=== PATIENT | female | born 1960 | race Asian ===

== ENCOUNTER 2023-01-05 11:15 | Inpatient (IN) | payer OTHER ==
[~2023-01-05] VITALS: Ht 165.1 cm; Wt 78.8 kg
[2023-01-05 11:40] VITALS: PULSE 85; RESP 13; O2SAT 99
[2023-01-05 12:10] LABS: Basophils # (auto) 0.1 10 ^3/uL (0-0.2); Basophils % (auto) 1.1 % (0.0-2.0); Eosinophils # (auto) 0.1 10 ^3/uL (0-0.8); Eosinophils % (auto) 0.7 % (0.0-7.0); Hemoglobin 13.9 g/dL (12.2-16.2); Lymphocytes # (auto) 2.9 10 ^3/uL (0.4-5.4); Lymphocytes % (auto) 38.1 % (10.0-50.0); Mean Corpuscular Hgb Conc. 34.7 g/dL (32.0-36.0); Mean Corpuscular Volume 92.2 fL (80.0-100.0); Monocytes # (auto) 0.5 10 ^3/uL (0-1.3); Monocytes % (auto) 6.5 % (0.0-12.0); Neutrophils # (auto) 4.1 10 ^3/uL (1.6-8.6); Neutrophils % (auto) 53.6 % (37.0-80.0); Red Blood Cells 4.34 10^6/uL (4.0-5.20); Red Cell Distribution Width 12.8 % (11.8-14.3); White Blood Cell 7.7 10^3/uL (4.4-10.8)
[2023-01-05 12:26] LABS: Alanine Aminotransferase 20 U/L (7-40); Albumin 4.7 g/dL (3.2-4.8); Alkaline Phosphatase 74 U/L (46-116); Anion Gap 7 (5-15); Aspartate Aminotransferase 18 U/L (13-40); BUN/Creatinine Ratio 8.8 (10.0-20.0); Bilirubin, Total 0.8 mg/dL (0.2-1.0); Blood Urea Nitrogen 7 mg/dL (9-23); Calcium 9.7 mg/dL (8.7-10.4); Carbon Dioxide 25 mmol/L (20-30); Chloride 109 mmol/L (98-107); Glucose 91 mg/dL (74-106); Magnesium 2.1 mg/dL (1.6-2.6); Potassium 4.1 mmol/L (3.5-5.1); Sodium 141 mmol/L (136-145); Total Protein 7.3 g/dL (5.7-8.2)
[2023-01-05 12:49] LABS: Amphetamine Screen, Urine Neg (NEGATIVE); Barbiturate Scree,Urine Neg (NEGATIVE); Benzodiazephine Screen, Urine Neg (NEGATIVE); Cocaine Screen, Urine Neg (NEGATIVE); Opiate Scree,Urine Neg (NEGATIVE)
[2023-01-05 12:50] LABS: Cannabinoid Screen, Urine Neg (NEGATIVE); Phencyclidine Screen, Urine Neg (NEGATIVE)
[2023-01-05 12:54] LABS: Urine Bacteria NONE SEEN /hpf (None Seen); Urine Blood Negative /uL (Negative); Urine Clarity Clear (Clear); Urine Color Colorless (Yellow); Urine Protein, UAD Negative (Negative); Urine Specific Gravity 1.005 (1.001-1.035); Urine Urobilinogen Normal (Negative); Urine WBC <1 /hpf (0 - 5); Urine pH 6.5 (5.0-8.0)
[2023-01-05] MEDS ORDERED: ASPirin 325 MG TAB PO ONE (14:15)
[2023-01-05] MEDS ORDERED: HYDROcodone-ACET 5/325MG TAB PO PRN (14:45)
[2023-01-05] MEDS ORDERED: NITROGLYCERIN 0.4 MG SL TAB SL PRN (14:45)
[2023-01-05] MEDS: LOSARTAN POTASSIUM 25 MG TAB PO SCH ×2 (14:45→15:00)
[2023-01-05] MEDS ORDERED: MORPHINE SULFATE INJ 2 MG/ml SYRG IV PRN ×2 (14:45)
[2023-01-05 15:17] LABS: Triglycerides 146 mg/dL (< 150)
[2023-01-05 15:18] LABS: LDL Cholesterol 159 mg/dL (< 100)
[2023-01-05 15:19] LABS: Cholesterol 227 mg/dL (< 200); HDL Cholesterol 60 mg/dL (40-59)
[2023-01-05 19:30] VITALS: PULSE 64; RESP 12; O2SAT 98
[2023-01-05] MEDS: ATORVASTATIN 20 MG TAB PO SCH (22:11)
[2023-01-05] MEDS: METOPROLOL TARTRATE 25 MG TAB PO SCH (22:12)
[2023-01-06] VITALS (7 sets, daily range): BP systolic 110–136; BP diastolic 42–64; PULSE 47–91; RESP 17–20; TEMP 98–98.3; O2SAT 96–99
[2023-01-06] MEDS ORDERED: PNEUMOCOCCAL VACC POLYS 25 MCG/0.5 ML VIAL IM ONE (01:45)
[2023-01-06 05:17] LABS: Basophils # (auto) 0.1 10 ^3/uL (0-0.2); Basophils % (auto) 1.2 % (0.0-2.0); Eosinophils # (auto) 0.1 10 ^3/uL (0-0.8); Eosinophils % (auto) 1.2 % (0.0-7.0); Hematocrit 38.9 % (36.0-46.0); Lymphocytes # (auto) 2.7 10 ^3/uL (0.4-5.4); Lymphocytes % (auto) 40.6 % (10.0-50.0); Mean Corpuscular Hemoglobin 31.4 pg (28.0-32.0); Mean Corpuscular Hgb Conc. 33.3 g/dL (32.0-36.0); Mean Corpuscular Volume 94.4 fL (80.0-100.0); Monocytes # (auto) 0.5 10 ^3/uL (0-1.3); Neutrophils # (auto) 3.4 10 ^3/uL (1.6-8.6); Red Blood Cells 4.12 10^6/uL (4.0-5.20); Red Cell Distribution Width 12.8 % (11.8-14.3); White Blood Cell 6.7 10^3/uL (4.4-10.8)
[2023-01-06 05:32] LABS: Chloride 111 mmol/L (98-107); Sodium 141 mmol/L (136-145)
[2023-01-06 05:33] LABS: Anion Gap 8 (5-15); Calcium 8.6 mg/dL (8.7-10.4); Carbon Dioxide 22 mmol/L (20-30)
[2023-01-06 05:38] LABS: BUN/Creatinine Ratio 9.8 (10.0-20.0); Blood Urea Nitrogen 8 mg/dL (9-23); Glucose 90 mg/dL (74-106)
[2023-01-06] MEDS ORDERED: ADENOSINE 63 MG in GIVE UN-DILUTED 0 ML IV ONE (07:45)
[2023-01-06] MEDS ORDERED: LORazepam 2MG/ML-1ML VIAL IV PRN (09:45)
[2023-01-06] MEDS: LOSARTAN POTASSIUM 25 MG TAB PO SCH (10:00)
[2023-01-06] MEDS ORDERED: ASPirin 81 mg TAB PO SCH (10:00)
[2023-01-06] MEDS: CLOPIDOGREL BISULFATE 75 MG TAB PO SCH (10:00)
[2023-01-06] MEDS: METOPROLOL TARTRATE 25 MG TAB PO SCH ×2 (10:00→21:40)
[2023-01-06] MEDS: ACETAMINOPHEN 325 MG TAB PO PRN ×2 (10:02→18:51)
[2023-01-06] MEDS: ENOXAPARIN SOD 40 MG/0.4 ML SYRINGE SC SCH (12:36)
[2023-01-06] MEDS: ATORVASTATIN 20 MG TAB PO SCH (21:23)
[2023-01-07] VITALS (9 sets, daily range): BP systolic 108–130; BP diastolic 42–75; PULSE 47–61; RESP 16–19; TEMP 36.6; O2SAT 96–99
[2023-01-07 07:30] LABS: Anion Gap 7 (5-15); Carbon Dioxide 23 mmol/L (20-30); Chloride 109 mmol/L (98-107); Potassium 4.2 mmol/L (3.5-5.1); Sodium 139 mmol/L (136-145)
[2023-01-07 07:31] LABS: Calcium 9.1 mg/dL (8.5-10.1)
[2023-01-07 07:33] LABS: INR 0.99 (0.9-1.15); Partial Thromboplastin Time 26.9 SEC (24.5-34.5); Prothrombin Time 10.4 sec (9.3-11.8)
[2023-01-07 07:35] LABS: Basophils # (auto) 0.1 10 ^3/uL (0-0.2); Eosinophils # (auto) 0.1 10 ^3/uL (0-0.8); Eosinophils % (auto) 1.4 % (0.0-7.0); Hematocrit 41.6 % (36.0-46.0); Hemoglobin 14.1 g/dL (12.2-16.2); Lymphocytes # (auto) 2.6 10 ^3/uL (0.4-5.4); Lymphocytes % (auto) 38.8 % (10.0-50.0); Mean Corpuscular Volume 94.1 fL (80.0-100.0); Monocytes # (auto) 0.5 10 ^3/uL (0-1.3); Monocytes % (auto) 7.3 % (0.0-12.0); Neutrophils # (auto) 3.5 10 ^3/uL (1.6-8.6); Neutrophils % (auto) 51.5 % (37.0-80.0); Nucleated Red Blood Cells % 0.1 %; Red Blood Cells 4.42 10^6/uL (4.0-5.20); Red Cell Distribution Width 12.9 % (11.8-14.3); White Blood Cell 6.8 10^3/uL (4.4-10.8)
[2023-01-07 07:36] LABS: BUN/Creatinine Ratio 12.7 (10.0-20.0); Blood Urea Nitrogen 9 mg/dL (9-23); Glucose 101 mg/dL (74-106)
[2023-01-07] MEDS: METOPROLOL TARTRATE 25 MG TAB PO SCH (09:38)
[2023-01-07] MEDS: ENOXAPARIN SOD 40 MG/0.4 ML SYRINGE SC SCH (09:38)
[2023-01-07] MEDS: CLOPIDOGREL BISULFATE 75 MG TAB PO SCH (09:38)
[2023-01-07] MEDS: LOSARTAN POTASSIUM 25 MG TAB PO SCH (09:38)
[2023-01-07] MEDS ORDERED: ASPirin 81 mg TAB PO SCH (10:00)
[2023-01-07] MEDS ORDERED: LIDOCAINE 2%HCL (LOCAL ANESTH.) INJ 20ML MDV ONE (10:06)
[2023-01-07] MEDS ORDERED: IODIXANOL 320MG/ML 100ML BTL IV ONE ×2 (10:06→10:36)
[2023-01-07] MEDS ORDERED: ANGIOMAX 250 MG VIAL IV ONE (10:12)
[2023-01-07] MEDS ORDERED: HEPARIN SODIUM (PORCINE) 5000 UNITS/ML 1ML VIAL ONE (10:12)
[2023-01-07] MEDS ORDERED: fentaNYL CITRATE 100 MCG/2 ML VL ONE (10:12)
[2023-01-07] MEDS ORDERED: VERAPAMIL 2.5MG/ML INJ 2ML VIAL IV ONE (10:12)
[2023-01-07] MEDS ORDERED: SODIUM CHL 0.9% 0 ML ONE (10:13)
[2023-01-07] MEDS ORDERED: MIDAZOLAM HCL 2MG/2ML 2ml VIAL (1mg/ml) ONE (10:13)
== END 2023-01-07 16:00 | disposition home or self-care (01) | DRG 47 ==
LOC: ER 11:15 → TELE 14:40 → TELE-WESTW 23:00
PROVIDERS: ADMIT Internal Medicine; ATTEND Internal Medicine
PROC: 4A023N7 Measurement of Cardiac Sampling and Pressure, Left Heart, Percutaneous Approach (ICD-10-PCS; principal; 2023-01-07)
PROC: B211YZZ Fluoroscopy of Multiple Coronary Arteries using Other Contrast (ICD-10-PCS; 2023-01-07)
DX: G45.9 Transient cerebral ischemic attack, unspecified (principal); Q24.5 Malformation of coronary vessels; I20.0 Unstable angina; E66.9 Obesity, unspecified; I16.1 Hypertensive emergency; E78.5 Hyperlipidemia, unspecified; F19.90 Other psychoactive substance use, unspecified, uncomplicated; I10 Essential (primary) hypertension; R20.2 Paresthesia of skin; Z79.02 Long term (current) use of antithrombotics/antiplatelets; Z79.82 Long term (current) use of aspirin; Z79.899 Other long term (current) drug therapy; Z87.891 Personal history of nicotine dependence; Z68.38 Body mass index [BMI] 38.0-38.9, adult
CPT/HCPCS: 36415; 70450; 70496; 70551; 71045; 76536; 78452; 80048; 80053; 80061; 80307; 81001; 82962; 83605; 83735; 83880; 84439; 84443; 84484; 85025; 85610; 85730; 86850; 86900; 86901; 93005; 93017; 93306; 93458; 93886; 99152; G0378; J0153; J2250; Q9967